=== PATIENT | female | born 1955 | race Caucasian/White ===

== ENCOUNTER 2023-11-06 11:02 | Outpatient (AMB) | payer MEDICARE, SELFPAY ==
--- NOTE | 2023-11-06 11:27 | MHC.OFFWIV ---
Intake Vital Signs 11/06/23 11:30 Height 5 ft 4 in Weight 75.296 kg BMI 28.5 BP 138/80 Blood Pressure Location Lt brachial Position Sitting Pulse 74 Pulse Source Pulse Oximeter Temp 97.5 F Temp Source Temporal Artery Scan Pulse Oximetry (%) 98 Oxygen Delivery Method Room Air Intake Visit Reasons: fall both knees scrapped and nose Intake Note: pt c/o face and knee abrasions due to fall. Happened 11 am today. Fell on sidewalk. Hit face Patient Tobacco Use Status: Former Tobacco user Allergies doxycycline Allergy (Intermediate, Verified 11/06/23 11:39) Rash bees Allergy (Severe, Uncoded 11/06/23 11:39) Anaphylaxis Do you need a note to return to daycare/school/sports/work: No HPI fall both knees scrapped and nose HPI Details Patient presents difficulty walking or standing secondary to dizziness. She is with a friend who reports she fell approximately an hour ago hit her face and nose against the pavement. She has a scrape on her left anterior knee. On quick assessment she does take a daily 81 mg ASA, she is 68 years old having significant dizziness along with nausea. [facility] Social History Patient Tobacco Use Status: Former Tobacco user Review of Systems Const Reports as per HPI, Reports no additional complaints and Reports headache(s) ENT Reports vertigo and Reports headache(s) Musc Reports no additional complaints, Reports as per HPI and Reports abnormal gait Skin/Breast Denies lesions Neuro Reports no additional complaints, Reports as per HPI, Denies Abnormal speech present, Reports abnormal gait, Reports confusion, Reports vertigo and Reports headache(s) Psych Reports confusion Physical Exam Vital Signs: Last Vital Signs Temp 97.5 F 11/06/23 11:30 Pulse 74 11/06/23 11:30 BP 138/80 11/06/23 11:30 Pulse Ox 98 11/06/23 11:30 Oxygen Delivery Method Room Air 11/06/23 11:30 BMI result Body Mass Index 28.5 Const General: acute distress and confusion Orientation/consciousness: patient oriented x3 and confusion Limitations: physical limitations (Can not stand it or own power becomes too dizzy) Neuro General: patient oriented x3 and confusion Cranial nerves: Yes Normal facial strength present Cognition (Neuro): normal cognition Speech: No Abnormal speech present Gait exam (Neuro): Assisted gait required Motor exam (neuro): 5/5 motor strength present throughout Assessment & Plan Assessment & Plan (1) Acute head trauma: Code(s): S09.90XA - Unspecified injury of head, initial encounter Qualifiers: Encounter type: initial encounter Qualified Code(s): S09.90XA - Unspecified injury of head, initial encounter Plan: Advised patient she needs to be seen in emergency department to rule out intracranial bleed, nasal fracture. She is having some significant symptoms. Will monitor patient until EMS arrives. Coding Level of Care Code New Pt Level 4 (61999) Diagnoses Recent head trauma, initial encounter S09.90XA Encounter type: initial encounter
[2023-11-06 11:30] VITALS: BP 138/80; PULSE 74; TEMP 36.4; O2SAT 98; BMI 28.5
== END 2023-11-06 12:17 | disposition home or self-care (01) ==
PROVIDERS: Visit Provider Physician Assistant
DX: S09.90XA Unspecified injury of head, initial encounter (principal); W19.XXXA Unspecified fall, initial encounter; R42 Dizziness and giddiness; R11.0 Nausea
CPT/HCPCS: 99204